=== PATIENT | male | born 1990 | race Caucasian/White ===

== ENCOUNTER 2022-07-01 08:09 | Day surgery (SDC) | payer OTHER ==
[~2022-07-01 08:09] MED LIST: Lidocaine 1%/Sod Bicarbonate in NS 8.4% 1 ML Syringe IDERM PRN; Sodium Chloride 0.9% 10 ML Syringe FLUSH PRN; Sodium Chloride 0.9% 10 ML Syringe FLUSH SCH
[2022-07-01] MEDS: Lactated Ringers 1,000 ML IV SCH ×2 (08:30→12:25)
[2022-07-01] MEDS ORDERED: Albuterol/Ipratropium 3.0-0.5 MG/3 ML Neb Soln NEB PRN (08:57)
[2022-07-01] MEDS ORDERED: Citric Acid/Sodium Citrate Solution 30 ML Cup PO ONE (09:30)
[2022-07-01] MEDS ORDERED: Propofol 200 MG/20 ML SDV ONE (09:43)
[2022-07-01] MEDS ORDERED: fentaNYL 250 MCG/5 ML SDV ONE (09:43)
[2022-07-01] MEDS ORDERED: Rocuronium 50 MG/5 ML Vial ONE (09:45)
[2022-07-01] MEDS ORDERED: Lidocaine 1% 5 ML VIAL ONE (09:47)
[2022-07-01] MEDS ORDERED: Midazolam 1 MG/ML 2 ML SDV ONE (09:48)
[2022-07-01] MEDS ORDERED: Metoclopramide 10 MG/2 ML SDV ONE (09:49)
[2022-07-01] MEDS ORDERED: Ondansetron 4 MG/2 ML SDV ONE ×2 (09:50→11:22)
[2022-07-01] MEDS ORDERED: Sugammadex Sodium 200 MG/2 ML VIAL ONE (09:55)
[2022-07-01] MEDS ORDERED: Dexmedetomidine 200 MCG/2 ML SDV ONE (10:14)
[2022-07-01] MEDS ORDERED: ceFAZolin 2 GM Vial ONE ×2 (10:15→10:22)
[2022-07-01] MEDS ORDERED: Ketamine 500 mg/10 ML MDV ONE (10:28)
[2022-07-01] MEDS ORDERED: Phenylephrine HCl In 0.9% NaCl 1 MG/10 ML Vial ONE (10:35)
[2022-07-01] MEDS ORDERED: Albuterol 0.083% 2.5 MG/3 ML Neb Soln ONE (10:40)
[2022-07-01] MEDS ORDERED: ePHEDrine 50 MG/ML SDV ONE (10:46)
[2022-07-01] MEDS ORDERED: Dexamethasone 4 MG/ML 5 ML MDV ONE (10:49)
[2022-07-01] MEDS: Lidocaine 1% with EPINEPHrine 1:100,000 20 ML MDV ONE ×2 (11:02→11:17)
[2022-07-01] MEDS: Bupivacaine 0.5% 30 ML SDV ONE ×2 (11:02→11:17)
[2022-07-01] MEDS ORDERED: Ondansetron 4 MG/2 ML SDV IVPUSH PRN (11:44)
[2022-07-01] MEDS: HYDROmorphone 0.5 MG/0.5 ML Syringe IVPUSH PRN ×2 (11:49→12:09)
[2022-07-01] MEDS: fentaNYL 100 MCG/2 ML SDV IVPUSH PRN ×2 (11:51→12:08)
[2022-07-01] MEDS ORDERED: oxyCODONE 5 MG Tab PO ONE (14:30)
== END 2022-07-01 14:20 | disposition home or self-care (01) ==
LOC: JD.SDS 08:09
PROVIDERS: ATTEND Surgery
DX: K80.10 Calculus of gallbladder with chronic cholecystitis without obstruction (principal); I10 Essential (primary) hypertension; E03.9 Hypothyroidism, unspecified; R73.9 Hyperglycemia, unspecified; E79.0 Hyperuricemia without signs of inflammatory arthritis and tophaceous disease; E66.01 Morbid (severe) obesity due to excess calories; K52.9 Noninfective gastroenteritis and colitis, unspecified; Z68.42 Body mass index [BMI] 45.0-49.9, adult; Z79.899 Other long term (current) drug therapy
CPT/HCPCS: 00790; A9270-GY; J0690; J1100; J1170; J2250; J2405; J2704; J2765; J3010; J3490; J7120; J7620-GY